=== PATIENT | female | born 2005 | race Caucasian/White ===

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

== ENCOUNTER 2025-04-05 11:03 | Emergency (ER) | payer SELFPAY ==
[2025-04-05 11:12] VITALS: BP 122/82; PULSE 85; RESP 18; TEMP 36.7; O2SAT 100
--- NOTE | 2025-04-05 11:21 | ED.SKABFB ---
HPI - Skin/Abscess/Foreign Bdy General Chief complaint: Skin/Abscess/Foreign Body Stated complaint: Infected hang nail Source: patient Mode of arrival: ambulatory Limitations: no limitations History of Present Illness HPI narrative: Patient is a 19-year-old female who presents to the clinic with complaints of paronychia to her right 3rd digit with a streak of redness going up to her hand. She states that has a history of these. Denies any decreased ROM. Related Data Home Medications Medication Instructions Recorded Confirmed Last Taken Type Saccharomyces boulardii PO 04/05/25 04/05/25 History Allergies Allergy/AdvReac Type Severity Reaction Status Date / Time Penicillins Allergy Unknown rash Verified 04/05/25 11:20 codeine AdvReac Severe other Verified 04/05/25 11:20 Review of Systems Review of Systems: CONSTITUTIONAL: Denies body aches, fever, chills, or sweats. EYES: Denies visual changes, redness, or discharge. ENT: Denies rhinorrhea, congestion CARDIOVASCULAR: Denies chest pain, palpitations, or edema. RESPIRATORY: Denies cough or dyspnea. GASTROINTESTINAL: Denies abdominal pain, nausea, vomiting, or diarrhea. SKIN: Reports Paronychia to third middle digit on right hand and redness extending from middle finger to hand. MUSCULOSKELETAL: Denies back pain, joint pain, or myalgia. NEUROLOGIC: Denies headache, numbness, tingling, or weakness. All systems reviewed & are unremarkable except as noted in HPI and below PMFSH Past Medical History Medical History No pertinent past medical history Surgical History Surgical History History of wisdom tooth extraction Family History Family History Mother Family history non-contributory Social History Social History (Updated 12/18/24 @ 21:14 by Angie White PA-C) Social History: Surrogate medical decision maker: Sophia Garcia, mother ([phone]). Code status: Full code. Smoking status: Never smoker Alcohol intake: never Substance use: never Do You Feel Safe in your Home?: Yes Lack of Transportation: No Lack of Food: Never True Current Housing: I Have Housing Concerned About Future Housing: No Difficulty Paying Gas/Electric Bills: No Difficulty Paying for Meds: No Currently Unemployed: No Education: High School Diploma/GED Difficulty w/ Childcare or Family Care: No Spiritual care concerns: No Comments At time of signature, I have reviewed and agree with nursing past medical, surgical, social and family history unless otherwise noted. Please see nursing chart for further information. There is no relevant family history pertinent to the presenting complaint. Exam Narrative: GENERAL: Well-appearing HEAD: Normocephalic, atraumatic. EYES: conjunctivae clear, and EOMI. ENT: Mucous membranes moist. Oropharynx without edema, erythema or lesions. NECK: Supple. No lymphadenopathy CHEST: Clear to auscultation. HEART: Regular rate and rhythm. SKIN: Warm, dry. Paronychia noted to right third finger. Streak of erythema to the middle finger extending into right hand noted. NEURO: Alert and oriented x3. Course Course Level of Care: Express Care Visit Vital Signs Vital signs: Vital Signs Temperature 98.1 F 04/05/25 11:12 Pulse Rate 85 04/05/25 11:12 Respiratory Rate 18 04/05/25 11:12 Blood Pressure 122/82 04/05/25 11:12 Pulse Oximetry 100 04/05/25 11:12 Temperature 98.1 F 04/05/25 11:12 Pulse Rate 85 04/05/25 11:12 Respiratory Rate 18 04/05/25 11:12 Blood Pressure 122/82 04/05/25 11:12 Pulse Oximetry 100 04/05/25 11:12 Reviewed MDM - Skin/Abscess/Foreign Bdy MDM Narrative Medical decision making narrative: Discussed physical exam findings. Antibiotic given for paronychia. Advised supportive measures and signs/symptoms to go to the ER. Pt is appropriate for outpatient treatment and follow up. Differential Diagnosis Differential diagnosis: Likely cellulitis and other ( paronychia ) Critical Care Time Critical Care Time Critical Care Time: No Discharge Plan Discharge Clinical Impression: Paronychia Patient Disposition: Home Condition: Stable Instructions: Paronychia (ED) Additional Instructions: Soak your nail in warm soapy water 3 or 4 times each day. Or apply a warm washcloth on your nail. This can help with any additional drainage that needs to come out. Raise your nail above the level of your heart as often as you can. This will help decrease swelling and pain. Tylenol as needed for pain Take antibiotic as directed Please follow-up with your primary care doctor in the next 1-2 days. If you cannot follow-up with your primary care doctor please go to the ED for any urgent issues. Patient Language: [place]ian Prescriptions: New sulfamethoxazole-trimethoprim [Bactrim DS] 800-160 mg tablet 1 tablet PO Q12H 7 Days Qty: 14 0RF No Action Saccharomyces boulardii [Daily Probiotic (S. boulardii)] PO Follow-up/Referrals: UNKNOWN,DOCTOR [Primary Care Provider] - Stand Alone Forms: Work/School Release IP Time of Disposition: 11:34
== END 2025-04-05 12:00 | disposition home or self-care (01) ==
DX: L03.011 Cellulitis of right finger (principal)
CPT/HCPCS: 99213; G0463